=== PATIENT | male | born 1970 | race Caucasian/White ===

== ENCOUNTER 2018-01-24 13:07 | Emergency (ER) | payer OTHER ==
[2018-01-24 13:52] VITALS: BP 138/84
--- NOTE | 2018-01-24 14:39 | UC ---
Truncal Trauma HPI - HPI Summary HPI Summary: Pt c/o sudden onset of right lower rib, lateral trunk and back pain that began suddenly after coughing "very hard" . Pt has c/o of reproducible pain right lower ribs and side and pain with coughing. Pain is relieved by "bracing side" when coughing provides relief of pain. - History Of Current Complaint Chief Complaint: UCRespiratory Stated Complaint: RIGHT SIDED RIB PAIN Time Seen by Provider: 01/24/18 13:55 Hx Obtained From: Patient Onset/Duration: Sudden Onset, Lasting Days Onset Of Pain: Immediate Severity Initially: Moderate Severity Currently: Moderate Pain Intensity: 5 Mechanism Of Injury: Other - coughing Aggravating Factor(s): Deep Breathing, Cough Alleviating factor(s): Rest, Shallow Breathing Associated Signs And Symptoms: Positive: Cough - Allergies/Home Medications Allergies/Adverse Reactions: Allergies Allergy/AdvReac Type Severity Reaction Status Date / Time No Known Allergies Allergy Verified 01/24/18 13:52 PMH/Surg Hx/FS Hx/Imm Hx Previously Healthy: Yes Respiratory History: COPD - Surgical History Surgical History: Yes Surgery Procedure, Year, and Place: 1998 + 2000 lumbar surgery-discectomy, 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 LEFT SHOULDER 2018 - Family History Known Family History: Positive: Cardiac Disease - Social History Occupation: Employed Full-time Lives: With Family Alcohol Use: Occasionally Substance Use Type: None Smoking Status (MU): Heavy Every Day Tobacco Smoker Have You Smoked in the Last Year: Yes Review of Systems All Other Systems Reviewed And Are Negative: Yes Constitutional: Positive: Fatigue Skin: Positive: Negative Eyes: Positive: Negative ENT: Positive: Sinus Congestion Respiratory: Positive: Shortness Of Breath, Cough Cardiovascular: Positive: Negative Gastrointestinal: Positive: Negative Genitourinary: Positive: Negative Motor: Positive: Negative Neurovascular: Positive: Negative Musculoskeletal: Positive: Arthralgia, Myalgia Neurological: Positive: Negative Psychological: Positive: Negative Is Patient Immunocompromised?: No Physical Exam Triage Information Reviewed: Yes Appearance: Obese Vital Signs: Initial Vital Signs Temp 98.7 F 01/24/18 13:40 Pulse 96 01/24/18 13:40 Resp 18 01/24/18 13:40 BP 138/84 01/24/18 13:40 Pulse Ox 98 01/24/18 13:40 Vital Signs Reviewed: Yes Eye Exam: Normal ENT Exam: Normal Dental Exam: Normal Neck exam: Normal Respiratory Exam: Normal Respiratory: Positive: Normal breath sounds Cardiovascular Exam: Normal Musculoskeletal: Positive: Other: - c/o pain with exam right lower ribs and lateral trunk Neurological Exam: Normal Psychological Exam: Normal Skin Exam: Normal Diagnostics - Radiology No standard instances Radiology Interpretation Completed By: Radiologist - IMPRESSION: #. No evidence for pneumonia. #. No evidence for rib fracture or pneumothorax. Truncal Trauma Course/Dx - Differential Dx/Diagnosis Differential Diagnosis/HQI/PQRI: Chest Wall Contusion, Rib Fracture Provider Diagnosis: Rib pain on right side, Pain of truncal structure Discharge - Sign-Out/Discharge Documenting (check all that apply): Patient Departure All imaging exams completed and their final reports reviewed: Yes - Discharge Plan Condition: Stable Disposition: HOME Prescriptions: Cyclobenzaprine TAB* [Flexeril 10 MG TAB*] 10 mg PO TID PRN #15 tab PRN Reason: Pain predniSONE TAB* [Deltasone 20 MG TAB*] 20 mg PO DAILY #4 tab Patient Education Materials: Thoracic Pain (ED), Rib Contusion (ED) Referrals: Alireza West MD [Primary Care Provider] - If Needed - Billing Disposition and Condition Condition: STABLE Disposition: Home
== END 2018-01-24 14:50 | disposition home or self-care (01) ==
LOC: UCCORT 13:07
DX: R07.81 Pleurodynia (principal); F17.210 Nicotine dependence, cigarettes, uncomplicated
CPT/HCPCS: 71111; 99212; G0463